=== PATIENT | female | born 1975 | race Hispanic/Latino ===

== ENCOUNTER 2020-07-19 21:07 | Emergency (ER) | payer OTHER ==
[2020-07-19 21:32] LABS: BASOPHILS % (AUTO) 0.6 % (0.0-5.0); EOSINOPHILS % (AUTO) 5.2 % (0.0-8.0); HEMATOCRIT 37.4 % (36-48); LYMPHOCYTES % (AUTO) 25.1 % (21.0-51.0); MEAN CORPUSCULAR HEMOGLOBIN 32.5 pg (27.0-33.0); MEAN CORPUSCULAR HGB CONC 33.2 g/dL (32.0-36.0); MEAN CORPUSCULAR VOLUME 97.9 fL (79-99); MONOCYTES % (AUTO) 7.8 % (3.0-13.0); NEUTROPHILS % (AUTO) 61.1 % (40.0-77.0); PLATELET COUNT (AUTO) 206 K/uL (130-400); RED BLOOD CELL COUNT(AUTO) 3.82 MIL/uL (4.00-5.50); RED CELL DISTRIBUTION WIDTH 11.9 % (11.0-15.5); WHITE BLOOD COUNT (AUTO) 8.6 K/uL (4.8-10.8)
[2020-07-19 21:48] LABS: CREATININE 0.8 mg/dL (0.5-1.5); POTASSIUM 3.9 mmol/L (3.5-5.1)
[2020-07-19 22:04] LABS: ALBUMIN 3.7 g/dL (3.5-5.0); BILIRUBIN,TOTAL 0.3 mg/dL (0.2-1.0); TOTAL PROTEIN, SERUM 7.3 g/dL (6.0-8.3)
[2020-07-19] MEDS ORDERED: ASPIRIN 325 MG TABLET ONE (22:23)
== END 2020-07-19 22:49 | disposition home or self-care (01) ==
LOC: EDH 21:07
DX: R07.89 Other chest pain (principal); B33.8 Other specified viral diseases; R03.0 Elevated blood-pressure reading, without diagnosis of hypertension; Z20.828 Contact with and (suspected) exposure to other viral communicable diseases
CPT/HCPCS: 36415; 80053; 82550; 84484; 85025; 87426; 93005; 99284; U0003

== ENCOUNTER 2021-05-18 00:49 | Emergency (ER) | payer MEDICAID, OTHER ==
[~2021-05-18] VITALS: Ht 154.9 cm; Wt 62.6 kg
[2021-05-18] MEDS ORDERED: FAMOTIDINE 20MG VIAL IV ONE ×2 (01:24→02:30)
[2021-05-18] MEDS ORDERED: KETOROLAC 30MG VIAL (30MG/ML) ONE (01:24)
[2021-05-18] MEDS ORDERED: METOCLOPRAMIDE 10 MG/2 ML VIAL ONE (01:24)
[2021-05-18] MEDS ORDERED: ONDANSETRON 4MG INJ ONE (01:24)
[2021-05-18 01:25] LABS: BASOPHILS % (AUTO) 0.8 % (0.0-5.0); EOSINOPHILS % (AUTO) 4.7 % (0.0-8.0); HEMATOCRIT 47.3 % (36-48); LYMPHOCYTES % (AUTO) 35.2 % (21.0-51.0); MEAN CORPUSCULAR HEMOGLOBIN 32.6 pg (27.0-33.0); MEAN CORPUSCULAR HGB CONC 34.2 g/dL (32.0-36.0); MEAN CORPUSCULAR VOLUME 95.2 fL (79-99); MONOCYTES % (AUTO) 8.4 % (3.0-13.0); NEUTROPHILS % (AUTO) 50.8 % (40.0-77.0); PLATELET COUNT (AUTO) 248 K/uL (130-400); RED BLOOD CELL COUNT(AUTO) 4.97 MIL/uL (4.00-5.50); RED CELL DISTRIBUTION WIDTH 11.7 % (11.0-15.5); WHITE BLOOD COUNT (AUTO) 8.3 K/uL (4.8-10.8)
[2021-05-18 01:26] LABS: APPEARANCE,URINE Clear (CLEAR); BILIRUBIN,URINE Negative (NEGATIVE); COLOR,URINE Yellow (YELLOW); GLUCOSE, URINE (UA) Negative (NEGATIVE); KETONES,URINE Negative (NEGATIVE); LEUKOCYTE ESTERASE ,URINE Trace (NEGATIVE); NITRATE,URINE Negative (NEGATIVE); OCCULT BLOOD,URINE Negative (NEGATIVE); PROTEIN,URINE Negative (NEGATIVE)
[2021-05-18] MEDS ORDERED: PANTOPRAZOLE 40 MG/VIAL ONE (01:26)
[2021-05-18 01:33] LABS: CREATININE 0.8 mg/dL (0.5-1.5); POTASSIUM 3.9 mmol/L (3.5-5.1)
[2021-05-18 01:38] LABS: ALBUMIN 4.6 g/dL (3.5-5.0); BILIRUBIN,TOTAL 0.9 mg/dL (0.2-1.0); TOTAL PROTEIN, SERUM 9.2 g/dL (6.0-8.3)
[2021-05-18 01:40] LABS: BACTERIA,URINE None Seen /HPF (None Seen); RBC,URINE 0-1 /HPF (0-1); SQUAMOUS EPITHELIAL CELL,UR Few /HPF (0-2); WBC,URINE 0-1 /HPF (0-1)
[2021-05-18 02:29] LABS: AMPHET/METH SCREEN,URINE NEGATIVE (NEGATIVE); BARBITURATE SCREEN, URINE NEGATIVE (NEGATIVE); BENZODIAZEPINES SCREEN,URINE NEGATIVE (NEGATIVE); CANNABINOID SCREEN,URINE POSITIVE (NEGATIVE); COCAINE SCREEN,URINE POSITIVE (NEGATIVE); OPIATE SCREEN,URINE NEGATIVE (NEGATIVE); PHENCYCLIDINE SCREEN,URINE NEGATIVE (NEGATIVE)
[2021-05-18] MEDS ORDERED: METOCLOPRAMIDE 10 MG/2 ML VIAL IVP ONE (02:30)
[2021-05-18] MEDS ORDERED: PANTOPRAZOLE 40 MG/VIAL IVP ONE (02:30)
[2021-05-18] MEDS ORDERED: ONDANSETRON 4MG INJ IVP ONE (02:30)
[2021-05-18] MEDS ORDERED: 0.9%NACL 1000ML 1,000 ML IV ONE ×2 (02:30)
[2021-05-18] MEDS ORDERED: KETOROLAC 30MG VIAL (30MG/ML) IV ONE (02:30)
[2021-05-18] MEDS ORDERED: METO-296 PO (03:10)
[2021-05-18] MEDS ORDERED: ONDA4TAB10 PO (03:10)
[2021-05-18] MEDS ORDERED: PANT40TA PO (03:10)
[2021-05-18] MEDS ORDERED: DICY20TA2 PO (03:10)
[2021-05-18 04:20] VITALS: BP 104/50
[2021-05-18] MEDS ORDERED: IOHEXOL 350 MG/ML 100ML INFUS..BTL IV ONE (06:53)
== END 2021-05-18 04:28 | disposition home or self-care (01) ==
LOC: EDH 00:49
DX: R10.13 Epigastric pain (principal); E86.9 Volume depletion, unspecified; Z79.899 Other long term (current) drug therapy
CPT/HCPCS: 36415; 74177; 80053; 80305; 81001; 83690; 85025; 96361; 96374; 96375; 99285; J1885; J2405; J2765; J7030; Q9967; S0028; S0164; C9113; J3490

== ENCOUNTER 2021-06-28 23:37 | Emergency (ER) | payer MEDICAID, OTHER ==
[~2021-06-28] VITALS: Ht 154.9 cm; Wt 59.4 kg
[~2021-06-28 23:37] MED LIST: DICY20TA2 PO; METO-296 PO; ONDA4TAB10 PO; PANT40TA PO
[2021-06-29 01:01] LABS: BASOPHILS % (AUTO) 0.9 % (0.0-5.0); EOSINOPHILS % (AUTO) 8.8 % (0.0-8.0); HEMATOCRIT 36.9 % (36-48); LYMPHOCYTES % (AUTO) 35.7 % (21.0-51.0); MEAN CORPUSCULAR HGB CONC 33.3 g/dL (32.0-36.0); MEAN CORPUSCULAR VOLUME 96.1 fL (79-99); MONOCYTES % (AUTO) 9.8 % (3.0-13.0); NEUTROPHILS % (AUTO) 44.6 % (40.0-77.0); PLATELET COUNT (AUTO) 186 K/uL (130-400); RED BLOOD CELL COUNT(AUTO) 3.84 MIL/uL (4.00-5.50); RED CELL DISTRIBUTION WIDTH 11.4 % (11.0-15.5); WHITE BLOOD COUNT (AUTO) 6.4 K/uL (4.8-10.8)
[2021-06-29 01:07] LABS: CREATININE 0.7 mg/dL (0.5-1.5); POTASSIUM 3.2 mmol/L (3.5-5.1)
[2021-06-29 01:11] LABS: BILIRUBIN,TOTAL 0.4 mg/dL (0.2-1.0); TOTAL PROTEIN, SERUM 7.6 g/dL (6.0-8.3)
[2021-06-29 01:56] LABS: ALCOHOL, BLOOD < 3 mg/dL (0-10); THYROID STIMULATING HORMONE 1.18 uIU/mL (0.36-3.74)
[2021-06-29 02:24] LABS: APPEARANCE,URINE Cloudy (CLEAR); BILIRUBIN,URINE Negative (NEGATIVE); COLOR,URINE Yellow (YELLOW); GLUCOSE, URINE (UA) Negative (NEGATIVE); KETONES,URINE Negative (NEGATIVE); LEUKOCYTE ESTERASE ,URINE Moderate (NEGATIVE); NITRATE,URINE Negative (NEGATIVE); OCCULT BLOOD,URINE Negative (NEGATIVE); PROTEIN,URINE Negative (NEGATIVE); UROBILINOGEN,URINE 0.2 mg/dL (0.2-1.0)
[2021-06-29 02:30] LABS: AMPHET/METH SCREEN,URINE NEGATIVE (NEGATIVE); BARBITURATE SCREEN, URINE NEGATIVE (NEGATIVE); BENZODIAZEPINES SCREEN,URINE NEGATIVE (NEGATIVE); CANNABINOID SCREEN,URINE NEGATIVE (NEGATIVE); COCAINE SCREEN,URINE NEGATIVE (NEGATIVE); OPIATE SCREEN,URINE NEGATIVE (NEGATIVE); PHENCYCLIDINE SCREEN,URINE NEGATIVE (NEGATIVE)
[2021-06-29 02:55] LABS: BACTERIA,URINE Few /HPF (None Seen); RBC,URINE 0-1 /HPF (0-1)
[2021-06-29] MEDS ORDERED: 0.9%NACL 1000ML 1,000 ML IV ONE (04:00)
[2021-06-29] MEDS ORDERED: CEFTRIAXONE 1G VIAL IVP ONE (04:00)
[2021-06-29] MEDS ORDERED: DiphenhydrAMINE HCL 50 MG/ML VIAL IV ONE (04:00)
[2021-06-29] MEDS ORDERED: CYCL-309 PO (05:01)
[2021-06-29] MEDS ORDERED: CEPH500B PO (05:01)
[2021-06-29] MEDS ORDERED: DEXAMETHASONE 4 MG TAB PO ONE (05:30)
[2021-06-29 06:00] VITALS: BP 103/69
== END 2021-06-29 06:23 | disposition home or self-care (01) ==
LOC: EDH 23:37
DX: N39.0 Urinary tract infection, site not specified (principal); E86.9 Volume depletion, unspecified; M62.838 Other muscle spasm; Z79.52 Long term (current) use of systemic steroids; Z79.899 Other long term (current) drug therapy
CPT/HCPCS: 36415; 71045; 80053; 80305; 81001; 83735; 84443; 85025; 87088; 96361; 96374; 96375; 99285; J0696; J1200; J7030; J8540